=== PATIENT | male | born 1955 | race Caucasian/White ===

== ENCOUNTER 2017-09-06 17:21 | Emergency (ER) | payer MEDICARE ==
[2017-09-06] MEDS ORDERED: Nitroglycerin 0.4 MG TAB (25 Tab Bottle) ONE (17:36)
[2017-09-06 17:46] LABS: pH (venous) 7.25 (7.35-7.45)
[2017-09-06 17:47] LABS: Base Excess 3.8 mEq/L (-2 - +2); Hemoglobin (Hb) 16.9 g/dL (13.1-17.2)
[2017-09-06 17:48] LABS: PTT 29.5 SEC (22.9-36.1); Prothrombin Time 13.3 SEC (12.0-14.7)
[2017-09-06] MEDS ORDERED: Furosemide 40 MG/4 ML VIAL ONE (17:56)
[2017-09-06 17:58] LABS: ALT (SGPT) 25 U/L (8-55); AST (SGOT) 16 U/L (5-34); Albumin 3.9 g/dL (3.4-4.8); Alkaline Phosphatase 86 U/L (40-150); Anion Gap 14 mmol/L (10-20); BUN (Urea Nitrogen) 29 mg/dL (8.4-25.7); Bilirubin, Total 0.7 mg/dL (0.2-1.2); Calc. Creatinine Clearance 0 mL/min (70-130); Calcium 8.9 mg/dL (7.8-10.44); Carbon Dioxide 34 mmol/L (23-31); Chloride 100 mmol/L (98-107); Estimated GFR-MDRD 74; Globulin 2.9 g/dL (2.4-3.5); Glucose 116 mg/dL (80-115); Potassium 4.7 mmol/L (3.5-5.1); Protein, Total 6.8 g/dL (5.8-8.1); Sodium 143 mmol/L (136-145)
[2017-09-06 17:59] LABS: Band 1 % (5-11); CKMB 3.3 ng/mL (0-6.6); Hemoglobin 16.4 g/dL (14.0-18.0); Lymphocytes 28 % (21-51); MDiff Complete? YES; Mean Corpuscular HGB CONC 32.7 g/dL (32.0-36.0); Mean Corpuscular Hemoglobin 30.3 pg (27.0-31.0); Mean Corpuscular Volume 92.6 fl (80.0-94.0); Mean Platelet Volume 8.3 fL (7.4-10.4); Monocytes 6 % (0-10); Neutrophil 65 % (42-75); Platelet Count 261 thou/uL (130-400); RBC Distribution Width 14.4 % (11.5-14.5); Red Blood Cell (RBC) Count 5.43 mill/uL (4.70-6.10); Troponin I 0.024 ng/mL (< 0.028); White Blood Cell (WBC) Count 14.1 thou/uL (4.8-10.8)
[2017-09-06] MEDS ORDERED: Magnesium Sulfate 2 GM/100 ML BAG ONE (18:12)
[2017-09-06] MEDS ORDERED: methylPREDNISolone Sod Succ/PF 125 MG/2 ML VIAL ONE (18:12)
--- NOTE | 2017-09-06 18:19 | RAD ---
PORTABLE AP CHEST X-RAY 09/06/17 HISTORY: Seasonal allergies. COPD. COMPARISON: 11/21/15. FINDINGS: The cardiac silhouette remains enlarged. This exam is over penetrated which limits evaluation of the lung apices, but some of the lucency in the lung apices could be related to emphysematous changes. In creased linear densities are seen at the right lung base, this could be related to crowding of bronch ovascular markings due to question emphysematous changes in the upper lung zones. No focal consolidat ion or pleural fluid is appreciated. Pulmonary vasculature is within normal limits. There has been no significant interval change from the prior exam. IMPRESSION: 1. Cardiomegaly without overt CHF. 2. No acute cardiopulmonary process. POS: [facility]
== END 2017-09-06 20:20 | disposition short-term general hospital (02) ==
LOC: BURERS 17:21
DX: J44.1 Chronic obstructive pulmonary disease with (acute) exacerbation (principal); I25.10 Atherosclerotic heart disease of native coronary artery without angina pectoris; I11.0 Hypertensive heart disease with heart failure; I50.9 Heart failure, unspecified; I25.2 Old myocardial infarction; E78.5 Hyperlipidemia, unspecified; F32.9 Major depressive disorder, single episode, unspecified; Z79.82 Long term (current) use of aspirin; Z79.02 Long term (current) use of antithrombotics/antiplatelets; Z79.52 Long term (current) use of systemic steroids; Z79.899 Other long term (current) drug therapy
CPT/HCPCS: 71045; 80053; 82553; 82805; 83880; 84484; 85025; 85610; 85730; 93005; 96365; 96375; J1940; J2930; J3475; J7620